=== PATIENT | female | born 2000 | race American Indian/Alaskan Native ===

== ENCOUNTER 2019-01-23 03:39 | Emergency (ER) | payer BC ==
[2019-01-23 03:53] VITALS: RESP 18; TEMP 97.5
--- NOTE | 2019-01-23 04:03 | ED PDOC ---
Arrival/HPI - General Historian: Patient - History of Present Illness Narrative History of Present Illness (Text): 01/23/19 04:27 Patient is a 19 year old female with no significant past medical history presenting with chief complaint of discomfort in genital region and soreness below her buttocks bilaterally. Symptoms began today before she was getting on a plane flying back from [place]. Patient admits to one sexual partner with whom she uses protection. Also admits to dysuria. Denies fevers, chills, chest pain, shortness of breath, abdominal pain. Denies any vaginal bleeding or discharge. Time/Duration: 24 hours Symptom Course: Unchanged Quality: Burning Severity Level: Mild <Derek Lam - Last Filed: 01/23/19 05:28> <Abdiaziz Clarke - Last Filed: 01/23/19 06:21> - General Chief Complaint: Female Genitourinary Time Seen by Provider: 01/23/19 03:43 Past Medical History - Provider Review Nursing Documentation Reviewed: Yes - Psychiatric Hx Substance Use: No <Derek Lam - Last Filed: 01/23/19 05:28> Family/Social History - Physician Review Nursing Documentation Reviewed: Yes Family/Social History: No Known Family HX Smoking Status: Never Smoked Hx Alcohol Use: No Hx Substance Use: No <Derek Lam - Last Filed: 01/23/19 05:28> Allergies/Home Meds <Derek Lam - Last Filed: 01/23/19 05:28> <Abdiaziz Clarke - Last Filed: 01/23/19 06:21> Allergies/Adverse Reactions: Allergies No Known Allergies Allergy (Verified 01/23/19 03:51) Home Medications: Home Meds Medication Instructions Recorded Confirmed No Known Home Med 01/23/19 01/23/19 Review of Systems - Physician Review All systems were reviewed & negative as marked: Yes - Review of Systems Respiratory: Normal Cardiovascular: Normal Gastrointestinal: Normal Genitourinary Female: Dysuria. absent: Hematuria, Vaginal Bleeding, Vaginal Discharge <Derek Lam - Last Filed: 01/23/19 05:28> Physical Exam Vital Signs Reviewed: Yes Vital Signs Temp Pulse Resp BP Pulse Ox 01/23/19 03:51 97.5 F L 87 18 124/80 99 Temperature: Afebrile Blood Pressure: Normal Pulse: Regular Respiratory Rate: Normal Appearance: Positive for: Well-Appearing, Non-Toxic, Comfortable Pain Distress: None Mental Status: Positive for: Alert and Oriented X 3 - Systems Exam Head: Present: Atraumatic, Normocephalic Pupils: Present: PERRL Extroacular Muscles: Present: EOMI Conjunctiva: Present: Normal Mouth: Present: Moist Mucous Membranes Respiratory/Chest: Present: Clear to Auscultation, Good Air Exchange. No: Respiratory Distress, Accessory Muscle Use Cardiovascular: Present: Regular Rate and Rhythm, Normal S1, S2. No: Murmurs Abdomen: No: Tenderness, Distention, Peritoneal Signs Genitourinary/Pelvic Exam: Present: Vaginal Lesions (several small abrasions). No: Vaginal Discharge, Vaginal Bleeding Lower Extremity: Present: Normal Inspection. No: Edema Neurological: Present: GCS=15, CN II-XII Intact, Speech Normal Skin: Present: Warm, Dry, Normal Color. No: Rashes Psychiatric: Present: Alert, Oriented x 3, Normal Insight, Normal Concentration <Derek Lam - Last Filed: 01/23/19 05:28> Vital Signs Temp Pulse Resp BP Pulse Ox 01/23/19 05:19 77 18 125/82 100 01/23/19 03:51 97.5 F L 87 18 124/80 99 <Abdiaziz Clarke - Last Filed: 01/23/19 06:21> Medical Decision Making ED Course and Treatment: 01/23/19 04:23 Impression: 19 year old female with labial abrasion and buttock pain Plan: - CBC, CMP - CPK - Urinalysis - Toradol - Reassess and disposition Prior Visits: Notes and results from previous visits were reviewed. Progress Notes: 01/23/19 05:28 Patient states she feels better. Labs and imaging reviewed. Patient hemodynamically stable and optimized for discharge to follow up with primary medical doctor. Patient in agreement with plan of management. - Lab Interpretations I have reviewed the lab results: Yes <Derek Lam - Last Filed: 01/23/19 05:28> ED Course and Treatment: 01/23/19 06:20 Seen and examined with resident. 19 y/o F p/w vaginal sores after getting waxed and posterior thigh/buttock pain. On exam, small abrasions to labia and perineal area, no vaginal discharge or vesicular lesions. - Lab Interpretations Lab Results: Total Bilirubin 0.3 mg/dL (0.2-1.3) 01/23/19 04:31 AST 33 U/L (14-36) 01/23/19 04:31 ALT 24 U/L (7-56) 01/23/19 04:31 Alkaline Phosphatase 84 U/L (38-126) 01/23/19 04:31 Total Protein 7.8 g/dL (5.8-8.3) 01/23/19 04:31 Albumin 4.2 g/dL (3.0-4.8) 01/23/19 04:31 Globulin 3.6 gm/dL 01/23/19 04:31 Albumin/Globulin Ratio 1.2 (1.1-1.8) 01/23/19 04:31 Urine Color Yellow (YELLOW) 01/23/19 03:55 Urine Appearance Clear (CLEAR) 01/23/19 03:55 Urine pH 6.0 (4.7-8.0) 01/23/19 03:55 Ur Specific [place] >= 1.030 (1.005-1.035) 01/23/19 03:55 Urine Protein Negative mg/dL (<30 mg/dL) 01/23/19 03:55 Urine Glucose (UA) Negative mg/dL (NEGATIVE) 01/23/19 03:55 Urine Ketones Negative mg/dL (NEGATIVE) 01/23/19 03:55 Urine Blood Negative (NEGATIVE) 01/23/19 03:55 Urine Nitrate Negative (NEGATIVE) 01/23/19 03:55 Urine Bilirubin Negative (NEGATIVE) 01/23/19 03:55 Urine Urobilinogen 0.2 E.U./dL (<1 E.U./dL) 01/23/19 03:55 Ur Leukocyte Esterase Negative [place]/uL (NEGATIVE) 01/23/19 03:55 Urine HCG, Qual Negative (NEGATIVE) 01/23/19 03:55 Urine HCG, Qual Negative (NEGATIVE) 01/23/19 03:55 - Medication Orders Current Medication Orders: Discontinued Medications Ketorolac Tromethamine (Toradol) 30 mg IM STAT STA Stop: 01/23/19 04:23 Ketorolac Tromethamine (Toradol) 30 mg IVP STAT STA Stop: 01/23/19 04:23 Last Admin: 01/23/19 04:33 Dose: 30 mg MAR Pain Assessment Document 01/23/19 04:33 AD (Rec: 01/23/19 04:33 [place] [facility] [place] Pain Reassessment Is this a pain reassessment? No Description Intensity of Pain at present 5 IVP Administration Document 01/23/19 04:33 AD (Rec: 01/23/19 04:33 AD [facility] [place] Charges for Administration # of IVP Administrations 1 <Abdiaziz Clarke - Last Filed: 01/23/19 06:21> Disposition/Present on Arrival - Present on Arrival Any Indicators Present on Arrival: No History of DVT/PE: No History of Uncontrolled Diabetes: No Urinary Catheter: No History of Decub. Ulcer: No History Surgical Site Infection Following: None - Disposition Have Diagnosis and Disposition been Completed?: Yes Disposition Time: 05:10 <Derek Lam - Last Filed: 01/23/19 05:28> <Abdiaziz Clarke - Last Filed: 01/23/19 06:21> - Disposition Diagnosis: Labial abrasion Disposition: HOME/ ROUTINE Condition: GOOD Discharge Instructions (ExitCare): Skin Abrasions (DC) Additional Instructions: Please follow up with your primary medical doctor within one week Return to ED if symptoms return or worsen Forms: [facility] (Turkmen)
[2019-01-23 04:40] LABS: BASO # 0.01 K/mm3 (0.0-2.0); BASO % 0.2 % (0.0-3.0); EOS # 0.1 (0.0-0.7); HEMOGLOBIN 13.3 g/dL (12.0-16.0); LYMPH # 1.9 (1.2-3.4); LYMPH % 34.3 % (22.0-35.0); MEAN CORPUSCULAR HEMOGLOBIN 30.7 pg (25.0-35.0); MEAN CORPUSCULAR HGB CONC 32.7 g/dl (31.0-37.0); MEAN PLATELET VOLUME 10.3 fl (7.0-11.0); MONO # 0.5 (0.1-0.6); MONO % 8.4 % (1.0-6.0); RBC 4.33 10^6/uL (3.5-6.1); RED CELL DISTRIBUTION WIDTH 12.7 % (11.5-14.5); WHITE BLOOD COUNT 5.6 10^3/uL (4.5-11.0)
[2019-01-23 04:40] LABS: URINE BILIRUBIN NEGATIVE (NEGATIVE); URINE BLOOD NEGATIVE (NEGATIVE); URINE GLUCOSE (UA) NEGATIVE (NEGATIVE); URINE LEUKOCYTE ESTERASE NEGATIVE Leu/uL (NEGATIVE); URINE PROTEIN NEGATIVE mg/dL (<30 mg/dL); URINE UROBILINOGEN 0.2 E.U./dL (<1 E.U./dL)
[2019-01-23 04:48] LABS: URINE COLOR YELLOW (YELLOW)
[2019-01-23 04:49] LABS: HCG,QUALITATIVE URINE NEGATIVE (NEGATIVE); URINE APPEARANCE CLEAR (CLEAR)
[2019-01-23 05:03] LABS: ALB/GLOB RATIO 1.2 (1.1-1.8); ALBUMIN 4.2 g/dL (3.0-4.8); ALT/SGPT 24 U/L (7-56); AST/SGOT 33 U/L (14-36); BLOOD UREA NITROGEN 12 mg/dL (7-21); GFR NON-AFRICAN AMERICAN > 60
[2019-01-23 05:26] VITALS: BP 125/82; PULSE 77; O2SAT 100
== END 2019-01-23 05:19 | disposition home or self-care (01) ==
LOC: ED 03:39
DX: S30.814A Abrasion of vagina and vulva, initial encounter (principal); X58.XXXA Exposure to other specified factors, initial encounter
CPT/HCPCS: 80053; 81003; 81025; 82550; 83735; 84703; 85025; 96374; 99283; J1885